=== PATIENT | female | born 1955 | race Caucasian/White ===

== ENCOUNTER 2021-06-23 14:03 | Outpatient (CLI) | payer MEDICARE, BC | END 2021-06-23 14:04 | disposition home or self-care (01) | LOC: CSHMAMMO 14:03 | PROVIDERS: ATTEND Obstetrics & Gynecology | DX: Z12.31 Encounter for screening mammogram for malignant neoplasm of breast (principal) | CPT/HCPCS: 77063; 77067 ==

== ENCOUNTER 2022-07-24 14:50 | Outpatient (CLI) | payer MEDICARE, BC | END 2022-07-24 14:51 | disposition home or self-care (01) | LOC: CSHMAMMO 14:50 | PROVIDERS: ATTEND Obstetrics & Gynecology | DX: Z12.31 Encounter for screening mammogram for malignant neoplasm of breast (principal) | CPT/HCPCS: 77063; 77067 ==